=== PATIENT | female | born 1945 | race Caucasian/White ===

== ENCOUNTER 2022-03-15 11:52 | Inpatient (IN) | payer MEDICARE ==
[2022-03-15] MEDS ORDERED: Ondansetron PF 4 MG/2 ML Vial ONE (12:46)
[2022-03-15] MEDS ORDERED: Acetaminophen 500 MG TAB ONE (12:46)
[2022-03-15 12:49] LABS: #Eosinphils 0.1 10x3/uL (0.0-0.5); #Monocytes 0.8 10x3/uL (0.0-1.1); #Neutrophils 4.8 10x3/uL (1.5-8.4); %Basophils 0.3 % (0.0-2.0); %Eosinophils 2.1 % (0.0-6.0); %Lymphocytes 11.1 % (18.0-47.0); %Monocytes 12.8 % (0.0-10.0); %Neutrophils 72.9 % (40.0-75.0); Mean Corpuscular HGB CONC 34.7 g/dL (32.0-36.0); Mean Corpuscular Hemoglobin 33.2 pg (27.0-33.0); Mean Corpuscular Volume 95.9 fl (81.6-98.3); Mean Platelet Volume 9.9 fl (7.4-10.4); Platelet Count 225 10x3/uL (150-450); RBC Distribution Width 13.2 % (11.5-14.5); Red Blood Cell (RBC) Count 3.91 10x6/uL (3.90-5.03); White Blood Cell (WBC) Count 6.6 10x3/uL (3.5-10.5)
[2022-03-15 13:11] LABS: ALT (SGPT) 17 U/L (8-55); AST (SGOT) 16 U/L (5-34); Albumin 4.2 g/dL (3.4-4.8); Alkaline Phosphatase 40 U/L (40-110); Anion Gap 17 mmol/L (10-20); BUN (Urea Nitrogen) 11 mg/dL (9.8-20.1); Bilirubin, Total 0.3 mg/dL (0.2-1.2); Calc. Creatinine Clearance 0 mL/min (70-130); Calcium 9.7 mg/dL (7.8-10.44); Carbon Dioxide 26 mmol/L (23-31); Chloride 98 mmol/L (98-107); Estimated GFR 76; Globulin 2.1 g/dL (2.4-3.5); Glucose 221 mg/dL (83-110); Potassium 4.3 mmol/L (3.5-5.1); Protein, Total 6.3 g/dL (5.8-8.1); Sodium 137 mmol/L (136-145)
[2022-03-15] MEDS ORDERED: cefTRIAXone\\ROCEPHIN 2 GM VIAL ONE (13:44)
[2022-03-15 14:02] LABS: SARS-CoV-2 NAA Rapid Test DETECTED (NotDetected)
[2022-03-15 14:15] LABS: Bilirubin Neg (Negative); Blood, Urine 10 (Negative); Clarity Slightly Cloudy (Clear); Glucose, Urine (Dipstick) 50 mg/dL (Negative); Ketone, Urine 5 mg/dL (Negative); Leukocyte Negative (Negative); Nitrite Positive (Negative); Protein, Urine (Dipstick) 15 mg/dl (Neg-Trace); Urobilinogen Normal mg/dL (Less than 2)
[2022-03-15 14:34] LABS: Bacteria/HPF 4+ HPF (None Seen); RBC/HPF 0-3 HPF (0-3); Squamous Epithelial 0-3 HPF (0-3)
[2022-03-15 15:39] LABS: Lactic Acid 2.2 mmol/L (0.5-2.2)
[2022-03-15] MEDS ORDERED: Ondansetron PF 4 MG/2 ML Vial IVP PRN (17:50)
[2022-03-15] MEDS ORDERED: Ondansetron ODT 4 MG TAB PO PRN (17:50)
[2022-03-15] MEDS ORDERED: Acetaminophen 650 MG Suppository PR PRN (17:50)
[2022-03-15] MEDS ORDERED: Insulin Regular 300 UNITS/3 ML VIAL SC PRN (17:52)
[2022-03-15] MEDS ORDERED: Dextrose 5% in Water 1,000 ML IV PRN (17:52)
[2022-03-15] MEDS ORDERED: Dextrose 50% Abboject 50 ML SYRINGE SLOW IVP PRN (17:52)
[2022-03-15] MEDS ORDERED: Atorvastatin Calcium 10 MG TAB PO SCH (21:00)
[2022-03-15] MEDS: Sodium Chloride 0.9% 1,000 ML IV SCH (21:00)
[2022-03-16] MEDS ORDERED: Cepastat Lozenges 1 LOZ PO PRN (00:13)
[2022-03-16 03:56] VITALS: BMI 24.1
[2022-03-16 05:22] LABS: %Basophils 0.2 % (0.0-2.0); %Eosinophils 0.1 % (0.0-6.0); %Monocytes 10.8 % (0.0-10.0); %Neutrophils 79.6 % (40.0-75.0); Hemoglobin 12.1 g/dL (12.0-15.5); Mean Corpuscular HGB CONC 34.8 g/dL (32.0-36.0); Mean Corpuscular Hemoglobin 33.1 pg (27.0-33.0); Mean Corpuscular Volume 95.1 fl (81.6-98.3); Mean Platelet Volume 9.9 fl (7.4-10.4); Platelet Count 192 10x3/uL (150-450); RBC Distribution Width 13.2 % (11.5-14.5); Red Blood Cell (RBC) Count 3.66 10x6/uL (3.90-5.03); White Blood Cell (WBC) Count 8.8 10x3/uL (3.5-10.5)
[2022-03-16 05:40] LABS: Anion Gap 16 mmol/L (10-20); BUN (Urea Nitrogen) 9 mg/dL (9.8-20.1); Calc. Creatinine Clearance 79 mL/min (70-130); Calcium 8.8 mg/dL (7.8-10.44); Carbon Dioxide 22 mmol/L (23-31); Chloride 99 mmol/L (98-107); Estimated GFR 90; Glucose 219 mg/dL (83-110); Potassium 3.9 mmol/L (3.5-5.1); Sodium 133 mmol/L (136-145)
[2022-03-16] MEDS: Insulin Regular 300 UNITS/3 ML VIAL SC PRN ×2 (06:00→12:34)
[2022-03-16] MEDS: Acetaminophen 325 MG TAB PO PRN ×3 (06:00→21:12)
[2022-03-16] MEDS ORDERED: Enoxaparin Sodium 30 MG/0.3 ML SYRINGE SC SCH (09:00)
[2022-03-16] MEDS: Enoxaparin Sodium 40 MG/0.4 ML SYRINGE SC SCH (09:30)
[2022-03-16] MEDS: Aspirin 81 mg Enteric Coated Tablet PO SCH (09:30)
[2022-03-16] MEDS: Sodium Chloride 0.9% 1,000 ML IV SCH (09:31)
[2022-03-16] MEDS ORDERED: Benzonatate 100 MG CAP PO SCH ×2 (12:30→15:00)
[2022-03-16] MEDS ORDERED: cefTRIAXone\\ROCEPHIN 1 GM in Sodium Chloride 0.9% 100 ML IVPB SCH (14:00)
[2022-03-16 14:05] LABS: Hemoglobin A1c 6.6 % (4.0-6.0)
[2022-03-16] MEDS: cefTRIAXone\\ROCEPHIN 2 GM in Sodium Chloride 0.9% 100 ML IVPB SCH (14:29)
[2022-03-16] MEDS ORDERED: Atorvastatin Calcium 20 MG TAB PO SCH (21:00)
[2022-03-16] MEDS: metFORMIN 500 MG TAB PO SCH (21:13)
[2022-03-16] MEDS: guaiFENesin ER 600 MG TAB PO SCH (21:13)
[2022-03-17 05:55] LABS: Hemoglobin 12.4 g/dL (12.0-15.5); Mean Corpuscular HGB CONC 34.3 g/dL (32.0-36.0); Mean Corpuscular Hemoglobin 33.1 pg (27.0-33.0); Mean Corpuscular Volume 96.5 fl (81.6-98.3); Mean Platelet Volume 9.9 fl (7.4-10.4); Platelet Count 179 10x3/uL (150-450); RBC Distribution Width 13.2 % (11.5-14.5); Red Blood Cell (RBC) Count 3.75 10x6/uL (3.90-5.03); White Blood Cell (WBC) Count 11.2 10x3/uL (3.5-10.5)
[2022-03-17 05:59] LABS: ALT (SGPT) 15 U/L (8-55); AST (SGOT) 19 U/L (5-34); Albumin 3.3 g/dL (3.4-4.8); Alkaline Phosphatase 31 U/L (40-110); Anion Gap 15 mmol/L (10-20); BUN (Urea Nitrogen) 9 mg/dL (9.8-20.1); Bilirubin, Direct 0.2 mg/dL (0.1-0.3); Bilirubin, Total 0.3 mg/dL (0.2-1.2); CRP (Inflammatory) 10.76 mg/dL (= or < 0.5); Calc. Creatinine Clearance 85 mL/min (70-130); Calcium 8.6 mg/dL (7.8-10.44); Carbon Dioxide 23 mmol/L (23-31); Cardiac Risk 2.6 (Less than 4.5); Chloride 100 mmol/L (98-107); Cholesterol 90 mg/dl (< 200 Desired); Estimated GFR 92; Glucose 175 mg/dL (83-110); HDL Cholesterol 35 mg/dL (>60 Neg Risk); LDL Cholesterol, Calculated 40 mg/dL; Magnesium 1.6 mg/dL (1.6-2.6); Potassium 3.6 mmol/L (3.5-5.1); Protein, Total 5.6 g/dL (5.8-8.1); Sodium 134 mmol/L (136-145); Triglycerides 73 mg/dL (Less than 150)
[2022-03-17 06:04] LABS: Actual Bicarbonate (HCO3v) 26 mEq/L (22-28); Base Excess 1.5 mEq/L (-2.0 to +3.0); Calcium, Ionized (venous) 1.11 mmol/L (1.16-1.32); Chloride (VBG) 100 mmol/L (98-106); Critical Notified By: CP.PH; Hemoglobin (Hb) 13.2 g/dL (11.7-16.1); Potassium (VBG) 3.58 mmol/L (3.70-5.30); Puncture Site Other Site; RapidComm Collect By LAB.YY; Sodium 130.7 mmol/L (133-146); pH (venous) 7.43 (7.32-7.43)
[2022-03-17 06:14] LABS: MDiff Complete? YES
[2022-03-17 06:17] LABS: Band 32 % (5-11); Lymphocytes 15 % (21-51); Metamyelocyte 1 % (0-0); Monocytes 7 % (0-10); Neutrophil 43 % (42-75); Platelet Morphology Comment Appears Adequate; Reactive Lymphocytes 2 % (0-10)
[2022-03-17 06:18] LABS: RBC Morphology Normal
[2022-03-17] MEDS: metFORMIN 500 MG TAB PO SCH ×2 (08:38→20:49)
[2022-03-17] MEDS: guaiFENesin ER 600 MG TAB PO SCH ×2 (08:38→20:49)
[2022-03-17] MEDS: Aspirin 81 mg Enteric Coated Tablet PO SCH (08:38)
[2022-03-17] MEDS: Enoxaparin Sodium 40 MG/0.4 ML SYRINGE SC SCH (08:39)
[2022-03-17] MEDS: Pioglitazone HCl 45 MG TAB PO SCH (08:40)
[2022-03-17] MEDS ORDERED: NIRMATRELVIR 150 MG/RITONAVIR 100 MG TABLET PO SCH ×2 (11:00→11:15)
[2022-03-17] MEDS ORDERED: Sodium Chloride 0.9% 1,000 ML IV SCH (11:24)
[2022-03-17 13:07] LABS: Sodium, Urine 119 mmol/L (Not Available); Urea Nitrogen, Random Urine 558 mg/dl
[2022-03-17] MEDS: cefTRIAXone\\ROCEPHIN 2 GM in Sodium Chloride 0.9% 100 ML IVPB SCH (14:02)
[2022-03-17] MEDS: Insulin Regular 300 UNITS/3 ML VIAL SC PRN (15:29)
[2022-03-17] MEDS: Sodium Chloride 0.9% 1,000 ML IV SCH ×3 (15:48→21:15)
[2022-03-17] MEDS: Benzonatate 100 MG CAP PO SCH (20:49)
[2022-03-18] MEDS: Sodium Chloride 0.9% 1,000 ML IV SCH ×2 (00:29→09:51)
[2022-03-18 05:07] LABS: Anion Gap 13 mmol/L (10-20); BUN (Urea Nitrogen) 9 mg/dL (9.8-20.1); Calc. Creatinine Clearance 92 mL/min (70-130); Calcium 8.4 mg/dL (7.8-10.44); Carbon Dioxide 22 mmol/L (23-31); Chloride 103 mmol/L (98-107); Estimated GFR 93; Glucose 136 mg/dL (83-110); Magnesium 1.7 mg/dL (1.6-2.6); Potassium 3.3 mmol/L (3.5-5.1); Sodium 135 mmol/L (136-145)
[2022-03-18 05:24] LABS: Hemoglobin 11.5 g/dL (12.0-15.5); Mean Corpuscular HGB CONC 33.9 g/dL (32.0-36.0); Mean Corpuscular Hemoglobin 32.7 pg (27.0-33.0); Mean Corpuscular Volume 96.3 fl (81.6-98.3); Mean Platelet Volume 10.1 fl (7.4-10.4); Platelet Count 169 10x3/uL (150-450); RBC Distribution Width 13.5 % (11.5-14.5); Red Blood Cell (RBC) Count 3.52 10x6/uL (3.90-5.03); White Blood Cell (WBC) Count 5.7 10x3/uL (3.5-10.5)
[2022-03-18 06:50] LABS: MDiff Complete? YES
[2022-03-18 06:52] LABS: Platelet Morphology Comment Appears Adequate; RBC Morphology Normal
[2022-03-18 06:54] LABS: Band 7 % (5-11); Eosinophils 1 % (0-10); Lymphocytes 24 % (21-51); Monocytes 6 % (0-10); Neutrophil 62 % (42-75)
[2022-03-18] MEDS: Benzonatate 100 MG CAP PO SCH ×3 (09:21→21:16)
[2022-03-18] MEDS: Enoxaparin Sodium 40 MG/0.4 ML SYRINGE SC SCH (09:21)
[2022-03-18] MEDS: metFORMIN 500 MG TAB PO SCH ×2 (09:22→21:16)
[2022-03-18] MEDS: guaiFENesin ER 600 MG TAB PO SCH ×2 (09:22→21:16)
[2022-03-18] MEDS: Aspirin 81 mg Enteric Coated Tablet PO SCH (09:22)
[2022-03-18] MEDS: Pioglitazone HCl 45 MG TAB PO SCH (09:22)
[2022-03-18] MEDS: cefTRIAXone\\ROCEPHIN 2 GM in Sodium Chloride 0.9% 100 ML IVPB SCH (14:05)
[2022-03-18] MEDS ORDERED: Electrolyte Replacement Protocol 1 EACH FS PRN (14:45)
[2022-03-18] MEDS ORDERED: Magnesium 2 GM/50 ML(in water) 2 GM in Premix Bag 1 BAG IVPB SCH (16:00)
[2022-03-18] MEDS ORDERED: Potassium Bicarbonate/Cit Ac 20 MEQ TAB PO SCH (16:00)
[2022-03-18] MEDS: Insulin Regular 300 UNITS/3 ML VIAL SC PRN (16:16)
[2022-03-18] MEDS ORDERED: Diphenoxylate HCl/Atropine Tablet PO PRN (17:17)
[2022-03-18] MEDS ORDERED: Loperamide HCl 2 MG CAP PO PRN (17:17)
[2022-03-18] MEDS ORDERED: Electrolyte Replacement Protocol 1 EACH FS SCH (17:30)
[2022-03-19 05:27] LABS: #Eosinphils 0.1 10x3/uL (0.0-0.5); #Monocytes 0.4 10x3/uL (0.0-1.1); #Neutrophils 2.1 10x3/uL (1.5-8.4); %Basophils 0.3 % (0.0-2.0); %Eosinophils 2.4 % (0.0-6.0); %Lymphocytes 27.4 % (18.0-47.0); %Monocytes 11.1 % (0.0-10.0); %Neutrophils 58.3 % (40.0-75.0); Hemoglobin 11.2 g/dL (12.0-15.5); Mean Corpuscular HGB CONC 34.4 g/dL (32.0-36.0); Mean Corpuscular Volume 96.2 fl (81.6-98.3); Mean Platelet Volume 9.6 fl (7.4-10.4); Platelet Count 178 10x3/uL (150-450); RBC Distribution Width 13.2 % (11.5-14.5); Red Blood Cell (RBC) Count 3.39 10x6/uL (3.90-5.03); White Blood Cell (WBC) Count 3.7 10x3/uL (3.5-10.5)
[2022-03-19 05:39] LABS: Phosphorus 2.2 mg/dL (2.3-4.7)
[2022-03-19 05:51] LABS: Anion Gap 14 mmol/L (10-20); BUN (Urea Nitrogen) 6 mg/dL (9.8-20.1); Calc. Creatinine Clearance 86 mL/min (70-130); Calcium 8.4 mg/dL (7.8-10.44); Carbon Dioxide 23 mmol/L (23-31); Chloride 101 mmol/L (98-107); Estimated GFR 92; Glucose 149 mg/dL (83-110); Magnesium 1.7 mg/dL (1.6-2.6); Potassium 3.5 mmol/L (3.5-5.1); Sodium 134 mmol/L (136-145)
[2022-03-19] MEDS ORDERED: Potassium Chloride 20 MEQ TAB PO SCH (06:00)
[2022-03-19] MEDS ORDERED: Magnesium 2 GM/50 ML(in water) 2 GM in Premix Bag 1 BAG IVPB SCH ×2 (06:00→08:00)
[2022-03-19] MEDS: Enoxaparin Sodium 40 MG/0.4 ML SYRINGE SC SCH (07:57)
[2022-03-19] MEDS: guaiFENesin ER 600 MG TAB PO SCH ×2 (07:57→21:15)
[2022-03-19] MEDS: Benzonatate 100 MG CAP PO SCH ×3 (07:57→21:15)
[2022-03-19] MEDS: Aspirin 81 mg Enteric Coated Tablet PO SCH (07:57)
[2022-03-19] MEDS: metFORMIN 500 MG TAB PO SCH ×2 (07:57→21:15)
[2022-03-19] MEDS: Pioglitazone HCl 45 MG TAB PO SCH (08:09)
[2022-03-19 10:01] LABS: Potassium 3.6 mmol/L (3.5-5.1)
[2022-03-19] MEDS: Insulin Regular 300 UNITS/3 ML VIAL SC PRN ×2 (12:07→15:40)
[2022-03-19] MEDS: cefTRIAXone\\ROCEPHIN 2 GM in Sodium Chloride 0.9% 100 ML IVPB SCH (14:20)
[2022-03-19] MEDS ORDERED: Sodium Phosphate 15 MMOL in Sodium Chloride 0.9% 250 ML 250 ML IVPB SCH (14:30)
[2022-03-20 06:12] LABS: #Eosinphils 0.1 10x3/uL (0.0-0.5); #Monocytes 0.5 10x3/uL (0.0-1.1); #Neutrophils 1.8 10x3/uL (1.5-8.4); %Basophils 0.5 % (0.0-2.0); %Eosinophils 3.4 % (0.0-6.0); %Lymphocytes 35.1 % (18.0-47.0); %Monocytes 12.4 % (0.0-10.0); %Neutrophils 47.3 % (40.0-75.0); Hemoglobin 12.4 g/dL (12.0-15.5); Mean Corpuscular HGB CONC 34.7 g/dL (32.0-36.0); Mean Corpuscular Hemoglobin 32.8 pg (27.0-33.0); Mean Corpuscular Volume 94.4 fl (81.6-98.3); Mean Platelet Volume 9.4 fl (7.4-10.4); Platelet Count 187 10x3/uL (150-450); RBC Distribution Width 13.2 % (11.5-14.5); Red Blood Cell (RBC) Count 3.78 10x6/uL (3.90-5.03); White Blood Cell (WBC) Count 3.9 10x3/uL (3.5-10.5)
[2022-03-20 06:21] LABS: Anion Gap 14 mmol/L (10-20); BUN (Urea Nitrogen) 5 mg/dL (9.8-20.1); Calc. Creatinine Clearance 89 mL/min (70-130); Calcium 8.7 mg/dL (7.8-10.44); Carbon Dioxide 23 mmol/L (23-31); Chloride 105 mmol/L (98-107); Estimated GFR 93; Glucose 155 mg/dL (83-110); Magnesium 1.7 mg/dL (1.6-2.6); Potassium 3.3 mmol/L (3.5-5.1); Sodium 139 mmol/L (136-145)
[2022-03-20] MEDS ORDERED: Potassium Chloride 20 MEQ TAB PO SCH (06:45)
[2022-03-20] MEDS ORDERED: Magnesium 2 GM/50 ML(in water) 2 GM in Premix Bag 1 BAG IVPB SCH (06:45)
[2022-03-20] MEDS: Enoxaparin Sodium 40 MG/0.4 ML SYRINGE SC SCH (08:56)
[2022-03-20] MEDS: metFORMIN 500 MG TAB PO SCH ×2 (08:56→20:47)
[2022-03-20] MEDS: Aspirin 81 mg Enteric Coated Tablet PO SCH (08:56)
[2022-03-20] MEDS: guaiFENesin ER 600 MG TAB PO SCH ×2 (08:56→20:47)
[2022-03-20] MEDS: Benzonatate 100 MG CAP PO SCH ×3 (08:56→20:47)
[2022-03-20] MEDS: Pioglitazone HCl 45 MG TAB PO SCH (08:56)
[2022-03-20] MEDS: Insulin Regular 300 UNITS/3 ML VIAL SC PRN (11:30)
[2022-03-20] MEDS: cefTRIAXone\\ROCEPHIN 2 GM in Sodium Chloride 0.9% 100 ML IVPB SCH (13:07)
[2022-03-21] MEDS: Insulin Regular 300 UNITS/3 ML VIAL SC PRN (06:00)
[2022-03-21] MEDS: Benzonatate 100 MG CAP PO SCH ×3 (08:52→21:34)
[2022-03-21] MEDS: Enoxaparin Sodium 40 MG/0.4 ML SYRINGE SC SCH (08:52)
[2022-03-21] MEDS: metFORMIN 500 MG TAB PO SCH ×2 (08:52→21:34)
[2022-03-21] MEDS: Aspirin 81 mg Enteric Coated Tablet PO SCH (08:52)
[2022-03-21] MEDS: guaiFENesin ER 600 MG TAB PO SCH ×2 (08:52→21:34)
[2022-03-21] MEDS: Pioglitazone HCl 45 MG TAB PO SCH (08:53)
[2022-03-21] MEDS ORDERED: Amlodipine 5 MG TAB PO SCH (10:00)
[2022-03-21] MEDS: cefTRIAXone\\ROCEPHIN 2 GM in Sodium Chloride 0.9% 100 ML IVPB SCH (14:52)
[2022-03-22] MEDS: Insulin Regular 300 UNITS/3 ML VIAL SC PRN ×2 (06:56→18:09)
[2022-03-22] MEDS: Enoxaparin Sodium 40 MG/0.4 ML SYRINGE SC SCH (08:33)
[2022-03-22] MEDS: Benzonatate 100 MG CAP PO SCH ×3 (08:33→20:38)
[2022-03-22] MEDS: guaiFENesin ER 600 MG TAB PO SCH ×2 (08:33→20:37)
[2022-03-22] MEDS: Aspirin 81 mg Enteric Coated Tablet PO SCH (08:33)
[2022-03-22] MEDS: metFORMIN 500 MG TAB PO SCH ×2 (08:34→20:37)
[2022-03-22] MEDS: Amlodipine 5 MG TAB PO SCH (08:34)
[2022-03-22] MEDS: Pioglitazone HCl 45 MG TAB PO SCH (08:34)
[2022-03-22 14:00] LABS: Hemoglobin 11.8 g/dL (12.0-15.5); Platelet Count 244 10x3/uL (150-450)
[2022-03-22 14:25] LABS: Anion Gap 17 mmol/L (10-20); BUN (Urea Nitrogen) 7 mg/dL (9.8-20.1); Calc. Creatinine Clearance 78 mL/min (70-130); Carbon Dioxide 23 mmol/L (23-31); Chloride 101 mmol/L (98-107); Estimated GFR 90; Glucose 192 mg/dL (83-110); Potassium 3.7 mmol/L (3.5-5.1); Sodium 137 mmol/L (136-145)
[2022-03-23] MEDS: Insulin Regular 300 UNITS/3 ML VIAL SC PRN (06:31)
[2022-03-23] MEDS: Enoxaparin Sodium 40 MG/0.4 ML SYRINGE SC SCH (08:26)
[2022-03-23] MEDS: Amlodipine 5 MG TAB PO SCH (08:26)
[2022-03-23] MEDS: Benzonatate 100 MG CAP PO SCH (08:27)
[2022-03-23] MEDS: metFORMIN 500 MG TAB PO SCH (08:27)
[2022-03-23] MEDS: guaiFENesin ER 600 MG TAB PO SCH (08:27)
[2022-03-23] MEDS: Pioglitazone HCl 45 MG TAB PO SCH (08:27)
[2022-03-23] MEDS: Aspirin 81 mg Enteric Coated Tablet PO SCH (08:27)
[2022-03-23 12:40] VITALS: BP 139/62; TEMP 97.3
== END 2022-03-23 14:23 | disposition home or self-care (01) | DRG 871 ==
LOC: CSHERS 11:52 → CSHTELE 20:46
PROVIDERS: ADMIT Family Medicine; ATTEND Family Medicine
PROC: 8E0ZXY6 Isolation (ICD-10-PCS; principal; 2022-03-15)
PROC: 3E03329 Introduction of Other Anti-infective into Peripheral Vein, Percutaneous Approach (ICD-10-PCS; 2022-03-15)
DX: A41.51 Sepsis due to Escherichia coli [E. coli] (principal); U07.1 COVID-19; G93.41 Metabolic encephalopathy; J96.01 Acute respiratory failure with hypoxia; A09 Infectious gastroenteritis and colitis, unspecified; N30.00 Acute cystitis without hematuria; E87.1 Hypo-osmolality and hyponatremia; K52.1 Toxic gastroenteritis and colitis; I10 Essential (primary) hypertension; E78.5 Hyperlipidemia, unspecified; E11.9 Type 2 diabetes mellitus without complications; F03.90 Unspecified dementia, unspecified severity, without behavioral disturbance, psychotic disturbance, mood disturbance, and anxiety; Z20.822 Contact with and (suspected) exposure to COVID-19; T36.95XA Adverse effect of unspecified systemic antibiotic, initial encounter
CPT/HCPCS: 36415; 36416; 51701; 70450; 71045; 76770; 80048; 80053; 80061; 80076; 81003; 81015; 82570; 82805; 83036; 83605; 83735; 83880; 83930; 83935; 84100; 84145; 84300; 84443; 84484; 84540; 85014; 85018; 85025; 85049; 86140; 87040; 87077; 87086; 87186; 87324; 87449; 93005; 94760; 96361; 96365; 96375; J0696; J1650; J1815; J2405; J3475; J3490; J7050; U0002

== ENCOUNTER 2022-05-09 14:09 | Outpatient (CLI) | payer MEDICARE | END 2022-05-09 14:10 | disposition home or self-care (01) | LOC: CSHULT 14:09 | PROVIDERS: ATTEND Student in an Organized Health Care Education/Training Program | DX: R22.31 Localized swelling, mass and lump, right upper limb (principal) | CPT/HCPCS: 76999 ==

== ENCOUNTER 2024-02-21 10:11 | Outpatient (CLI) | payer OTHER | END 2024-02-21 10:12 | disposition home or self-care (01) | LOC: CSHMAMMO 10:11 | PROVIDERS: ATTEND Nurse Practitioner Family | DX: Z13.820 Encounter for screening for osteoporosis (principal); M81.0 Age-related osteoporosis without current pathological fracture; Z78.0 Asymptomatic menopausal state | CPT/HCPCS: 77080 ==